=== PATIENT | female | born 1960 | race African-American/Black ===

== ENCOUNTER 2018-10-31 02:45 | Emergency (ER) | payer MEDICAID ==
[2018-10-31] MEDS ORDERED: Albuterol/Ipratropium Neb 3 ML AERS HHN ONE (02:52)
[2018-10-31 04:16] LABS: % BASOPHILS 1.3 % (0.0-2.0); % EOSINOPHILS 10.5 % (0.0-5.0); % MONOCYTES 8.1 % (2.0-10.0); % NEUTROPHILS 55.1 % (40.0-80.0); BASOPHILE ABSOLUTE 0.1 Th/cumm (0-0.2); EOSINOPHILE ABSOLUTE 0.8 Th/cmm (0.1-0.4); HEMATOCRIT 38.8 % (41.0-60); HEMOGLOBIN 12.6 gm/dL (12-16); LYMPHOCYTE ABSOLUTE 1.9 Th/cmm (1.5-3.0); MEAN CELL VOLUME 77.9 fl (81-100); MEAN CORPUSCULAR HEMOGLOBIN 25.3 pg (27.0-31.0); MEAN CORPUSCULAR HGB CONC 32.4 pg (28.0-36.0); MONOCYTE ABSOLUTE 0.6 Th/cmm (0.3-1.0); NEUTROPHILE ABSOLUTE 4.1 Th/cmm (1.8-8.0); PLATELET COUNT 260 Th/cmm (150-400); RED BLOOD COUNT 4.98 Mil/cmm (3.80-5.10); RED CELL DISTRIBUTION WIDTH 13.6 % (11.5-20.0); WHITE BLOOD COUNT 7.5 Th/cmm (4.8-10.8)
[2018-10-31 05:15] LABS: ALB/GLOB RATIO 1.7 (1.0-1.8); ALBUMIN 4.5 gm/dL (3.7-5.3); ALKALINE PHOSPHATASE 58 U/L (34-104); ANION GAP 10.8 (7.0-16.0); BILIRUBIN,TOTAL 0.5 mg/dL (0.3-1.0); BUN - UREA NITROGEN 9 mg/dL (7-25); CALCIUM SERUM 8.9 mg/dL (8.6-10.3); CARBON DIOXIDE 30.4 mEq/L (21.0-31.0); CHLORIDE 101 mEq/L (98-107); CREATININE - SERUM 0.6 mg/dL (0.6-1.2); CREATININE KINASE 152 U/L (30-223); GFR AFRICAN-AMERICAN > 60.0 ml/min (>90); GFR NON AFRICAN-AMERICAN > 60.0 ml/min; GLUCOSE 132 mg/dL (70-105); POTASSIUM SERUM 3.2 mEq/L (3.5-5.1); SGOT 14 U/L (13-39); SGPT/ALT 18 U/L (7-52); SODIUM SERUM 139 mEq/L (136-145); TOTAL PROTEIN,SERUM 7.2 gm/dL (6.0-8.3)
[2018-10-31] MEDS ORDERED: Potassium Chloride 20 mEq ER Tab PO ONE ×2 (05:33→05:37)
--- NOTE | 2018-10-31 06:49 | ED Physician Chart ---
ED Chief Complaint/HPI - Patient Information Date Seen:: 10/31/18 Time Seen:: 02:45 Chief Complaint:: sob History of Present Illness:: 58 yr old female with hx of asthma whose breathing machine not working with sob weezing Allergies:: Allergies Allergy/AdvReac Type Severity Reaction Status Date / Time No Known Allergies Allergy Verified 10/31/18 02:51 Vitals:: Vital Signs - 8 hr 10/31/18 10/31/18 10/31/18 02:45 03:03 03:12 Temp 98.5 F 98.2 F HR 90 84 86 RR 20 20 16 BP 181/84 174/82 O2 Sat % 92 91 96 10/31/18 03:28 Temp HR 81 RR 18 BP 146/72 O2 Sat % 96 ED Review of Systems - Review of Systems General/Constitutional: No fever, No chills, No weight loss, No weakness, No diaphoresis, No edema, No loss of appetite Skin: No skin lesions, No rash, No bruising Head: No headache, No light-headedness Eyes: No loss of vision, No pain, No diplopia ENT: No earache, No nasal drainage, No sore throat, No tinnitus Neck: No neck pain, No swelling, No thyromegaly, No stiffness, No mass noted Cardio Vascular: No chest pain, No palpitations, No PND, No orthopnea, No edema Pulmonary: SOB, Wheezing GI: No nausea, No vomiting, No diarrhea, No pain, No melena, No hematochezia, No constipation, No hematemesis G/U: No dysuria, No frequency, No hematuria Musculoskeletal: No bone or joint pain, No back pain, No muscle pain Endocrine: No polyuria, No polydipsia Psychiatric: No prior psych history, No depression, No anxiety, No suicidal ideation Hematopoietic: No bruising, No lymphadenopathy Allergic/Immuno: No urticaria, No angioedema Neurological: No syncope, No focal symptoms, No weakness, No paresthesia, No headache, No seizure, No dizziness, No confusion, No vertigo ED Past Medical History - Past Medical History Past Medical History: Asthma/COPD Family Medical History - Family Member Mother History Unknown: Yes ED Physical Exam - Physical Examination General/Constitutional: Awake, Well-developed, well-nourished, Alert, No distress, GCS 15, Non-toxic appearing, Ambulatory Head: Atraumatic Eyes: Lids, conjuctiva normal, PERRL, EOMI Skin: Nl inspection, No rash, No skin lesions, No ecchymosis, Well hydrated, No lymphadenopathy ENMT: External ears, nose nl, Nasal exam nl, Lips, teeth, gums nl Neck: Nontender, Full ROM w/o pain, No JVD, No nuchal rigidity, No bruit, No mass, No stridor Respiratory: Nl effort/Exclusion, Clear to Auscultation, No Wheeze/Rhonchi/Rales Other Respiratory comments:: sob wheezing Cardio Vascular: RRR, No murmur, gallop, rubs, NL S1 S2 GI: No tenderness/rebounding/guarding, No organomegaly, No hernia, Normal BS's, Nondistended, No mass/bruits, No McBurney tenderness : No CVA tenderness Extremities: No tenderness or effusion, Full ROM, normal strength in all extremities, No edema, Normal digits & nails Neuro/Psych: Alert/oriented, DTR's symmetric, Normal sensory exam, Normal motor strength, Judgement/insight normal, Mood normal, Normal gait, No focal deficits Misc: Normal back, No paraspinal tenderness ED Labs/Radiology/EKG Results - Lab Results Results: Laboratory Tests 10/31/18 10/31/18 03:55 03:55 WBC 7.5 RBC 4.98 Hgb 12.6 Hct 38.8 L MCV 77.9 L MCH 25.3 L MCHC Differential 32.4 RDW 13.6 Plt Count 260 MPV 8.0 Neutrophils % 55.1 Lymphocytes % 25.0 Monocytes % 8.1 Eosinophils % 10.5 H Basophils % 1.3 Sodium 139 Potassium 3.2 L Chloride 101 Carbon Dioxide 30.4 Anion Gap 10.8 BUN 9 Creatinine 0.6 Est GFR ( Amer) > 60.0 Est GFR (Non-Af Amer) > 60.0 BUN/Creatinine Ratio 15.0 Glucose 132 H Calcium 8.9 Total Bilirubin 0.5 AST 14 ALT 18 Alkaline Phosphatase 58 Creatine Kinase 152 Total Protein 7.2 Albumin 4.5 Globulin 2.7 Albumin/Globulin Ratio 1.7 ED Assessment - Assessment General Assessment: asthma exacerbation ED Septic Shock - . Is Septic Shock (SBP<90, OR Lactate>4 mmol\L) present?: No - <6hrs of presentation: Vital Signs: Vital Signs - 8 hr 10/31/18 10/31/18 10/31/18 02:45 03:03 03:12 Temp 98.5 F 98.2 F HR 90 84 86 RR 20 20 16 BP 181/84 174/82 O2 Sat % 92 91 96 10/31/18 03:28 Temp HR 81 RR 18 BP 146/72 O2 Sat % 96 ED Reassessment (Disposition) - Reassessment Reassessment:: asthma exacerbation - Diagnosis Diagnosis:: asthma exacerbation - Aftercare/Follow up Instructions Medication Prescribed:: zpack albuterol inhaler medrol dose pack - Patient Disposition Discharge/Transfer:: Home Condition at Disposition:: Stable
== END 2018-10-31 06:09 | disposition home or self-care (01) ==
LOC: ER 02:45
DX: J45.901 Unspecified asthma with (acute) exacerbation (principal)
CPT/HCPCS: 99284; 96372; 93005; 84484; 36415; 85025; 82550; 80053; Q0162; J2930; Z7502